=== PATIENT | female | born 1965 | race Asian ===

== ENCOUNTER 2019-03-24 13:47 | Emergency (ER) | payer OTHER ==
[~2019-03-24] VITALS: Ht 165.1 cm; Wt 71.2 kg
[2019-03-24 13:59] VITALS: BP 158/82; Ht 165.1 cm; Wt 71.2 kg
== END 2019-03-24 14:24 | disposition home or self-care (01) ==
LOC: ED 13:47
DX: J02.9 Acute pharyngitis, unspecified (principal)
CPT/HCPCS: 87804

== ENCOUNTER 2019-03-31 16:14 | Emergency (ER) | payer OTHER ==
[~2019-03-31] VITALS: Ht 165.1 cm; Wt 68.0 kg
[2019-03-31 18:57] VITALS: BP 137/64
== END 2019-03-31 18:57 | disposition home or self-care (01) ==
LOC: ED 16:14
DX: B34.9 Viral infection, unspecified (principal)
CPT/HCPCS: 87804

== ENCOUNTER 2019-07-11 11:39 | Inpatient (IN) | payer OTHER ==
[~2019-07-11] VITALS: Ht 160 cm; Wt 68.0 kg
[2019-07-11 11:49] VITALS: Ht 160 cm; Wt 68.0 kg
--- NOTE | 2019-07-11 12:20 | NUR ---
AWAKE ALERT ORIENTED, STATED SINCE 2 DAYS RECTAL BLEED DARK COLORED STOOL
[2019-07-11 12:24] LABS: BASOPHIL % 0.6 % (0-2); PLATELET COUNT 192 x10^3mcL (130-400); RED CELL DISTRIBUTION WIDTH 14.3 % (11.5-14.5)
--- NOTE | 2019-07-11 12:32 | NUR ---
TO CT SCAN
[2019-07-11 12:47] LABS: CALCIUM 8.7 mg/dL (8.5-10.1); CARBON DIOXIDE 27.1 mmol/L (21-32); CHLORIDE SERUM 106 mmol/L (98-107); CREATININE SERUM 0.9 mg/dL (0.6-1.0); GFR1 > 60 mL/min; GLUCOSE SERUM 89 mg/dL (74-106); POTASSIUM SERUM 4.2 mmol/L (3.5-5.1); SODIUM SERUM 140 mmol/L (136-145)
[2019-07-11 12:51] LABS: ALBUMIN 3.9 g/dL (3.4-5.0); ALKALINE PHOSPHATASE 48 U/L (46-116); ALT/SGPT 28 U/L (14-59); AST/SGOT 14 U/L (15-37); BILIRUBIN TOTAL 0.6 mg/dL (0.20-1.00); LIPASE 188 IU/L (73-393)
--- NOTE | 2019-07-11 13:10 | NUR ---
COVERING NURSE BELKYS FOR LUNCH. PT AWAKE AND ALERT. STATES SHES DOING OK. LAYING IN POSITION OF COMFORT. IV 1L NS INFUSING WITH NO S/SX OF INFILTRATION. VITALS UPDATED. WILL CONT TO MONITOR.
[2019-07-11 15:12] LABS: CHOLESTEROL/HDL RATIO 3.8; MAGNESIUM 2.4 mg/dL (1.8-2.4); PHOSPHOROUS 3.6 mg/dL (2.5-4.9)
[2019-07-11 15:22] LABS: T3 TOTAL 0.98 ng/mL
[2019-07-11 15:58] LABS: FREE T4 1.4 ng/dL (0.76-1.46); FREE THYROXINE INDEX 3.7 ug/dL (1.4-4.5); T4(THYROXINE) 10.9 ug/dL (4.7-13.3)
--- NOTE | 2019-07-11 16:00 | NUR ---
RESTING IN BED, NO COMPLAINTS,WAITING ADMISSION,NO BLEEDING NOTED
[2019-07-11 18:04] VITALS: BP 131/77
[2019-07-11 18:21] LABS: RED BLOOD CELLS 4.25 M/mm3 (4.10-5.10)
--- NOTE | 2019-07-11 18:27 | NUR ---
RECEIVED PT FROM ER, PT ADMIT FOR GI BLEED. PT IS A/O X4, VERBAL RESPONSIVE. LUNG SOUND CLEAR BILATERAL, NO COUGH, NO SOB. PT DENY ANY CHEST PAIN OR DISCOMFORT, BOWEL SOUND PRESENT ALL 4 QUARANTS, NO DISTENTION. PT C/O BLOODY STOOL X 2 IN PAST 2 DAYS. NO DIARREA. PEDAL PULSE PRESENT BOTH FEET, NO EDEMA, IV AT RIGHT AC, NO LEAKING, NO INFILTRATION. ALL ADLS ASSIST, ALL NEED MET, CALL LIGHT IN REACH, WILL CONTINUE TO MONITOR.
[2019-07-11 18:34] LABS: IRON 170 ug/dL (50-170); TOTAL IRON BINDING CAPACITY 355 ug/dL (250-450)
--- NOTE | 2019-07-11 19:00 | NUR ---
PT SITTING AT THE EDGE OF BED, DENIES ANY PAIN, STABLE. GAVE REPORT TO DIRECTOR OF GROUP COUNSELING PROGRAM NURSE.
--- NOTE | 2019-07-11 19:40 | NUR ---
RECEIVED PATIENT FROM DAY NURSE. MED-SURG PATIENT. PATIENT RESTING IN BED, A/O X4, VERBALLY RESPONSIVE, MANDARIN SPEAKER. BREATHING EVEN AND UNLABORED, ON ROOM AIR, DENIES SOB AND PAIN. ABD SOFT AND ROUND. NO EDEMA NOTED. ADMITTED FOR GI BLEED, SCHEDULED FOR COLONSCOPY TOMORROW, PATIENT TO BE NPO AFTER MIDNIGHT, PATIENT VERBALIZED UNDERSTANDING. C/O OF BLOODY STOOLS EARLIER IN DAY. AMBULATORY. IV RAC INTACT AND FLUSHED. CALL LIGHT WITHIN REACH, BED IN LOWEST POSITION.
[2019-07-11 20:41] VITALS: BP 107/58
--- NOTE | 2019-07-11 23:00 | NUR ---
DR. ABDUL SPOKE WITH PATIENT REGARDING COLONSCOPY SURGERY TMRW AND PATIENT SIGNED INFORMED SURGICAL CONSENT.
--- NOTE | 2019-07-11 23:35 | NUR ---
MADE A NOTE REQUESTING FOR DR. ABDUL IF SHE WOULD LIKE TO PLACE AN ORDER FOR EKG AND CXR PATIENT HAS NOT HAD THEM DONE @ THIS TIME.
--- NOTE | 2019-07-12 00:10 | NUR ---
PATIENT RESTING IN BED, WITH EYES CLOSED. EVEN CHEST RISE AND FALL. SHOWS NO SIGN OF PAIN OR DISTRESS. PATIENT WILL TO START 2ND DOSE OF MOVIPREP AROUND 0200. CALL LIGHT WITHIN REACH, BED IN LOWEST POSITION. WILL CONTINUE TO MONITOR.
[2019-07-12 02:44] LABS: microscopic required? YES; urine erythrocyte NEGATIVE (NEGATIVE)
[2019-07-12 02:52] LABS: AMPHETAMINE QUAL UR NONE DETECTED (See below)
[2019-07-12 05:14] VITALS: BP 106/55
--- NOTE | 2019-07-12 05:30 | NUR ---
SPOKE WITH DR. ABDUL REGARDING IF SHE WOULD LIKE TO PLACE AN ORDER FOR EKG AND CXR IN PREPARATION FOR SCHEDULED SURGERY TODAY. SHE STATED THAT SHE WILL PLACE THE ORDERS FOR THESE.
--- NOTE | 2019-07-12 06:19 | NUR ---
PATIENT RESTING IN BED, HAS BEEN NPO SINCE MIDNIGHT WITH THE EXCEPTION OF THE ORAL SURGICAL PREP WHICH WAS COMPLETED @ 0300. PATIENT HAS HAD AT LEAST 7 BMS AND MOST RECENT BM WAS CLEAR WITH SMALL BROWN STOOL SPECKS. DENIES SOB AND PAIN @ THIS TIME. COMPLETED SURGICAL CHECKLIST ALONG WITH INFORMED SURGICAL PATIENT CONSENT FORM OF WHICH WAS SIGNED BY PATIENT, BOTH HAVE BEEN PLACE IN PATIENT BINDER. CALL LIGHT WITHIN REACH, ALL NEEDS MET AND SAFETY PRECAUTIONS MAINTAINED THROUGHOUT SHIFT.
[2019-07-12 06:49] LABS: BASOPHIL % 0.3 % (0-2); PLATELET COUNT 164 x10^3mcL (130-400); RED CELL DISTRIBUTION WIDTH 14.1 % (11.5-14.5)
[2019-07-12 06:55] LABS: CALCIUM 8.4 mg/dL (8.5-10.1); CARBON DIOXIDE 21.7 mmol/L (21-32); CHLORIDE SERUM 110 mmol/L (98-107); CREATININE SERUM 0.8 mg/dL (0.6-1.0); GFR1 > 60 mL/min; GLUCOSE SERUM 88 mg/dL (74-106); MAGNESIUM 2.4 mg/dL (1.8-2.4); PHOSPHOROUS 3.5 mg/dL (2.5-4.9); POTASSIUM SERUM 4.3 mmol/L (3.5-5.1); SODIUM SERUM 143 mmol/L (136-145)
--- NOTE | 2019-07-12 07:10 | NUR ---
SEEN AOX4, NOT IN DISTRESS, MEDSURG, PALPABLE PULSES, NO EDEMA, CTA ON BLF, +BS, BM TODAY WITH CLEAR STOOL AND SPECKS OF BM , VOIDS WITH NO DYSURIA, NO WEAKNESS, FULL ROM, SKIN INTACT, NO PAIN AT THIS TIME, NPO AT MIDNIGHT , IV INTACT AND PATENT , NO REDNESS OR SWELLING. CALL LIGHT WITHIN REACH. BED AT LOWEST POSITION. SIDE RAILS UP.
--- NOTE | 2019-07-12 08:18 | NUR ---
PATIENT HAD 1 EPISODE OF CLEAR LIQUID STOOL WITH SPECKS OF BM. NO ABD PAIN, PATIENT NPO AT MIDNIGHT.
--- NOTE | 2019-07-12 08:19 | NUR ---
URINE CULTURE ORDERED, CALLED LAB IF THEY STILL HAVE URINE SPECIMEN THAT WAS TAKEN AN HOUR AGO AND ROUGH RIB GRADER SAID YES. THEY CAN RUN IT FOR URINE CULTURE.
--- NOTE | 2019-07-12 08:45 | NUR ---
MIRALAX PO GIVEN.
[2019-07-12 09:10] VITALS: BP 119/46
--- NOTE | 2019-07-12 10:47 | NUR ---
PAGED DR RODRIGUEZ REGARDING CXR AND EKG.
[2019-07-12 12:10] VITALS: BP 119/56
[2019-07-12] MEDS ORDERED: LEVOXYL25 MCG PO (13:14)
--- NOTE | 2019-07-12 13:42 | NUR ---
YOLANDA KING GIVEN REPORT.
--- NOTE | 2019-07-12 14:57 | NUR ---
PATIENT TRANSPORTED TO GI LAB.
[2019-07-12] MEDS ORDERED: MACROBID100 MG PO (15:20)
[2019-07-12] MEDS ORDERED: MIRALAX17 GM PO (15:21)
[2019-07-12] MEDS ORDERED: PREHO PR (15:21)
--- NOTE | 2019-07-12 15:43 | NUR ---
RECEIVED REPORT FROM GI RN SOURAV. GI REPORT: INTERNAL HEMORRHOIDS, NO OTHER PATHOLOGY.
[2019-07-12 15:45] VITALS: BP 119/73
--- NOTE | 2019-07-12 16:10 | NUR ---
DISCHARGE INSTRUCTIONS GIVEN. INSTRUCTED TO TAKE MEDICATIONS FROM PREFERRED PHARMACY, TO GO TO SCHEDULED APPOINTMENT AND TO BRING BELONGINGS WITH PATIENT. PATIENT SIGNED FORM AND PLACED ON CHART.
--- NOTE | 2019-07-12 16:32 | NUR ---
IV REMOVED. CATHETER INTACT. NO REDNESS. DISCHARGED PER AMBULATORY ACCOMPANIED BY JOURNEY[employer] SHEET METAL WORKER.
== END 2019-07-12 16:32 | disposition home or self-care (01) | DRG 394 ==
LOC: ED 11:39 → MU 14:16
PROVIDERS: Emergency Medicine; Internal Medicine Gastroenterology; ADMIT Family Medicine; ATTEND Family Medicine
PROC: 0DJD8ZZ Inspection of Lower Intestinal Tract, Via Natural or Artificial Opening Endoscopic (ICD-10-PCS; principal; 2019-07-12 12:30)
DX: K64.8 Other hemorrhoids (principal); N39.0 Urinary tract infection, site not specified; Z79.899 Other long term (current) drug therapy
CPT/HCPCS: 45378; 83880; 84439; G0378; J0696; J1200; J1610; J1885; J2250; J2310; J2405; J3010; J3490; J7030; Q0092